=== PATIENT | male | born 1985 ===

== ENCOUNTER 2025-03-16 05:15 | Day surgery (SDC) | payer OTHER ==
[2025-03-16] MEDS ORDERED: MIDAZOLAM HCL/PF 5 MG/ML VIAL IV ONE (07:45)
[2025-03-16] MEDS ORDERED: DIPHENHYDRAMINE HCL 50 MG/ML VIAL 1ML IV ONE (07:45)
[2025-03-16] MEDS ORDERED: FentaNYL CITRATE/PF 50MCG/ML 2ML VIAL IJ ONE (07:45)
== END 2025-03-16 09:30 | disposition home or self-care (01) ==
LOC: AMB-ENDOS 05:15
PROVIDERS: ATTEND Surgery
DX: K44.9 Diaphragmatic hernia without obstruction or gangrene (principal); R10.13 Epigastric pain; E66.09 Other obesity due to excess calories